=== PATIENT | male | born 1970 ===

== ENCOUNTER 2019-07-19 10:58 | Outpatient (CLI) | payer OTHER ==
[~2019-07-19] VITALS: Ht 152.4 cm; Wt 163.3 kg
== END 2019-07-19 12:43 | disposition home or self-care (01) ==
LOC: OFIC 805 10:58
DX: R09.81 Nasal congestion (principal); G47.33 Obstructive sleep apnea (adult) (pediatric); Q17.8 Other specified congenital malformations of ear; J30.89 Other allergic rhinitis; H91.8X3 Other specified hearing loss, bilateral